=== PATIENT | male | born 2000 | race Caucasian/White ===

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

== ENCOUNTER → 2018-01-16 12:29 | Outpatient (CLI) | payer BC, SELFPAY ==
--- NOTE | 2018-01-16 12:32 | RAD_ITS ---
STUDY: X-RAY - LEFT HAND, ATTENTION 2nd FINGER REASON FOR EXAM: Male, 17 years old. Distal finger injury TECHNIQUE: 3 view(s) of the finger were obtained. COMPARISON: None. FINDINGS: Volar avulsion fracture at the base of the distal phalanx of the second digit with some adjacent soft tissue swelling. RAD/Finger(s) Min 2 Views IMPRESSION: As above Electronically Signed: Hector Nesbitt DO at 13:14 EST Tel , Service support ,
== END ==
PROVIDERS: Referring Provider Physician Assistant Surgical; Visit Provider Physician Assistant Surgical
DX: S60.022A Contusion of left index finger without damage to nail, initial encounter (principal); X58.XXXA Exposure to other specified factors, initial encounter; Y93.9 Activity, unspecified; Y92.9 Unspecified place or not applicable; Y99.9 Unspecified external cause status
CPT/HCPCS: 73140